=== PATIENT | female | born 1990 ===

== ENCOUNTER 2020-04-21 14:32 | Outpatient (REF) | payer OTHER, SELFPAY ==
[2020-04-25 07:27] LABS: SARS-CoV-2 RNA Undetected (Undetected); SARS-CoV-2 Specimen Source Nasal
== END 2020-04-21 14:52 ==
LOC: NCHCN 14:32
PROVIDERS: PCP Nurse Practitioner Family; Visit Provider Nurse Practitioner Family
DX: Z11.59 Encounter for screening for other viral diseases (principal)
CPT/HCPCS: U0003